=== PATIENT | female | born 1970 | race Caucasian/White ===

== ENCOUNTER 2020-12-25 17:13 | Emergency (ER) | payer MEDICARE, OTHER ==
[~2020-12-25 17:13] MED LIST: ALBUTEROL2.5 MG/3 M INH; ANTIVERT 25MG T25 MG PO; ASPIR-LOW81 MG PO; ATORVASTATIN CA40 MG PO; BUPROPION HCL150 M1 PO; GLYCOPYRROLATE1 MG PO; HYGROTON TAB 2525 MG PO; IBUPROFEN800 MG PO; ISOSORBIDE MONO30 MG PO; MECLIZINE HCL25 MG PO; METOPROLOL TART25 MG PO; NITROGLYCERIN0.4 MG SL; PROAIR HFA8.5 GM INH; RANITIDINE HCL300 M1 PO; SUBOXONE 8 MG-1 EACH SL; TRAZODONE HCL150 MG PO; VOLTAREN GEL 1% TOP; VOLTAREN100 GM TP; ZANAFLEX4 M1 PO
[2020-12-25 18:39] LABS: HEMOGLOBIN 13.3 gm/dl (12.3-15.3); RED BLOOD COUNT 4.41 M/UL (4.00-5.10); WHITE BLOOD COUNT 12.6 K/UL (4.5-11.0)
[2020-12-25 19:03] LABS: BUN/CREATININE RATIO 15 (0-10)
[2021-02-01] MEDS ORDERED: VISTARIL50 MG PO (12:10)
[2021-02-01] MEDS ORDERED: ACID REDUCER20 MG PO (12:11)
[2021-02-01] MEDS ORDERED: DICLOFENAC SOD100 GM TP (12:14)
[2021-02-01] MEDS ORDERED: DIPROSONE 0.05%15 G1 EXT (12:15)
== END 2020-12-25 22:35 | disposition home or self-care (01) ==
LOC: ER1 17:13
PROVIDERS: Student in an Organized Health Care Education/Training Program
DX: R55 Syncope and collapse (principal); R07.89 Other chest pain; R10.13 Epigastric pain; E87.6 Hypokalemia; E78.5 Hyperlipidemia, unspecified; J44.9 Chronic obstructive pulmonary disease, unspecified; I10 Essential (primary) hypertension; Z86.73 Personal history of transient ischemic attack (TIA), and cerebral infarction without residual deficits; Z79.899 Other long term (current) drug therapy; Z88.1 Allergy status to other antibiotic agents; F17.210 Nicotine dependence, cigarettes, uncomplicated
CPT/HCPCS: 71045; 80053; 81001; 82550; 82553; 83690; 83874; 84484; 85025; 85379; 93005; 99284; Q9967

== ENCOUNTER → 2021-01-09 | Outpatient (CLI) | payer MEDICARE, OTHER ==
[~2021-01-09] MED LIST changes: +ACID REDUCER20 MG PO; +DICLOFENAC SOD100 GM TP; +DIPROSONE 0.05%15 G1 EXT; +VISTARIL50 MG PO
== END ==
LOC: MRI 01-08 09:30
DX: H81.10 Benign paroxysmal vertigo, unspecified ear (principal); R09.89 Other specified symptoms and signs involving the circulatory and respiratory systems
CPT/HCPCS: 70551

== ENCOUNTER → 2021-02-01 | Day surgery (SDC) | payer MEDICARE, OTHER | END | disposition home or self-care (01) | LOC: OR 11:22 | DX: K29.60 Other gastritis without bleeding (principal); K21.00 Gastro-esophageal reflux disease with esophagitis, without bleeding; I10 Essential (primary) hypertension; E66.3 Overweight; Z72.0 Tobacco use; E78.00 Pure hypercholesterolemia, unspecified; Z85.048 Personal history of other malignant neoplasm of rectum, rectosigmoid junction, and anus; Z88.1 Allergy status to other antibiotic agents; Z98.890 Other specified postprocedural states; Z79.899 Other long term (current) drug therapy; Z20.822 Contact with and (suspected) exposure to COVID-19 | CPT/HCPCS: J2704; J7040 ==

== ENCOUNTER → 2021-04-05 | Outpatient (CLI) | payer MEDICARE, OTHER | LOC: US 08:56 | DX: R10.11 Right upper quadrant pain (principal); K80.20 Calculus of gallbladder without cholecystitis without obstruction | CPT/HCPCS: 76705 ==

== ENCOUNTER → 2022-01-28 | Outpatient (CLI) | payer MEDICARE, OTHER | LOC: KOH-I 16:00 | DX: M51.16 Intervertebral disc disorders with radiculopathy, lumbar region (principal); M48.061 Spinal stenosis, lumbar region without neurogenic claudication; R29.898 Other symptoms and signs involving the musculoskeletal system | CPT/HCPCS: 72148 ==

== ENCOUNTER → 2022-05-26 | Outpatient (CLI) | payer MEDICARE, OTHER | LOC: LAB 16:42 | DX: U07.1 COVID-19 (principal) | CPT/HCPCS: U0002 ==

== ENCOUNTER → 2022-06-24 | Outpatient (CLI) | payer MEDICARE, OTHER ==
[2022-06-24 14:04] LABS: HEMOGLOBIN 14.1 gm/dl (12.3-15.3); RED BLOOD COUNT 4.71 M/UL (4.00-5.10)
[2022-06-24 19:04] LABS: BUN/CREATININE RATIO 19 (0-10)
== END ==
LOC: LAB 13:19
PROVIDERS: Internal Medicine Hematology & Oncology
DX: E78.5 Hyperlipidemia, unspecified (principal); I10 Essential (primary) hypertension; D72.829 Elevated white blood cell count, unspecified
CPT/HCPCS: 36415; 80053; 80061; 84439; 84443; 85025